=== PATIENT | female | born 1935 | race Caucasian/White ===

== ENCOUNTER 2021-02-19 16:12 | Emergency (ER) | payer MEDICARE, BC, SELFPAY ==
[2021-02-19] VITALS (13 sets, daily range): BP systolic 100–140; BP diastolic 42–74; PULSE 58–75; RESP 16–20; TEMP 38.6; O2SAT 93–98; BMI 36.7
--- NOTE | 2021-02-19 16:34 | XRR_ITS ---
PROCEDURE INFORMATION: Exam: XR Chest Exam date and time: 02/19/2021 4:34 PM Age: 85 years old Clinical indication: Shortness of breath; Prior surgery; Surgery type: Pacemaker; Additional info: Covid TECHNIQUE: Imaging protocol: XR of the chest. Views: 1 view. COMPARISON: No relevant prior studies available. FINDINGS: Tubes, catheters and devices: Three lead pacemaker device. Lungs: There are pulmonary parenchymal calcifications consistent with remote granulomatous organism exposure. Pleural spaces: Unremarkable. No pleural effusion. No pneumothorax. Heart/Mediastinum: There is a benign left pericardial fat pad. Bones/joints: Unremarkable. XR/XR chest 1V portable [id number] IMPRESSION: No evidence for acute cardiopulmonary disease.
--- NOTE | 2021-02-19 16:36 | W.ED.COVID ---
HPI - COVID General: Chief Complaint: COVID symptoms Stated Complaint: COVID +/ WEAKNESS/ CAN'T EAT OR DRINK Time Seen by Provider: 02/19/21 16:14 Source: patient Mode of arrival: EMS Limitations: no limitations Triage information: Has fever, cough or shortness of breath. No known COVID + exposure last 14 days History of Present Illness: HPI Narrative: 85 yo f who lives alone with relevant pmh of CHF with pacemaker, COPD on home o2 2LPM who p/w chief complaint of COVID19 related symptoms. She started having symptoms last Saturday, 5 days ago. She tested positive on Saturday02/17/21. Patient is febrile on arrival. She has home o2 that she uses as needed. Patient has been using it more often. Patient very weak; she has a hard time getting up to go to the bathroom. SHe has not eaten since Saturday. Patient not on any medicines for COVID. COVID 19 common symptoms: positive fever(s), chills, non-productive cough, dyspnea, fatigue, body aches and headache(s); negative productive cough, throat pain, nausea, vomiting or diarrhea COVID 19 other sytmptoms: negative chest pain COVID Results: No Data to Display Review of Systems General: Reports: 10 or more systems reviewed and unremarkable except in HPI and below Const: Reports: fever(s), chills, body aches, change in appetite, fatigue and malaise Eyes: Denies: change in vision or blurry vision ENMT: Denies: throat pain or mouth pain Card: Reports: lightheadedness and dyspnea on exertion; Denies: chest pain, palpitations, edema or swelling of feet/ankles Resp: Reports: dyspnea, non-productive cough and wheezing; Denies: productive cough or hemoptysis GI: Denies: abdominal pain, nausea, vomiting, hematemesis or diarrhea : Reports: oliguria Musc: Reports: neck pain, back pain, extremity pain and joint pain; Denies: extremity swelling, joint swelling or joint redness Skin/Breast: Denies: rash or erythema Neuro: Reports: headache(s) and weakness in extremities (diffuse) Psych: Denies: auditory hallucinations or tactile hallucinations Physical Exam Const: COMMON NORMALS: no limitations, alert and well nourished EXAM LIMITATIONS: no altered mental status GENERAL APPEARANCE: cooperative, well developed and ill appearing; not in distress ORIENTATION/CONSCIOUSNESS: Yes awake; not confused HENMT: COMMON NORMALS: normocephalic, atraumatic, external ears normal and Normal external nose present HEAD & SCALP: normal to inspection, normocephalic and atraumatic FACE & SINUS: face symmetric NOSE: Normal external nose present EXTERNAL EAR: Yes external ears normal MOUTH: lip normal; no muffled voice Eye: COMMON NORMALS: EOMs intact bilaterally and conjunctivae normal GENERAL EYE: appearance normal, both eyes and all related structures EYELID: eyelids normal CONJUNCTIVA: Yes conjunctivae normal SCLERA: sclerae normal CORNEA: Yes corneas normal Neck/C-Spine: COMMON NORMALS: no JVD GENERAL: Yes normal visual inspection and Yes trachea midline Resp: COMMON NORMALS: normal respiratory effort, No use of accessory muscles and clear to auscultation bilaterally EFFORT & INSPECTION: Yes able to speak in complete sentences and Yes symmetric chest movement AUSCULTATION: clear to auscultation bilaterally Cardio: COMMON NORMALS: no JVD, regular rate and regular rhythm RATE: regular rate RHYTHM: regular rhythm PERIPHERAL PULSES: radial pulses present GI: COMMON NORMALS: Soft to palpation INSPECTION: Yes normal to inspection PALPATION: Yes Soft to palpation, No Tenderness to palpation present (GI) and No Guarding due to palpation present (GI) Back/Pelvis: COMMON NORMALS: thoraco-lumbar ROM normal Extremity: COMMON NORMALS: normal to inspection GENERAL: Yes normal exam except as noted Neuro: COMMON NORMALS: moves all extremities, no focal motor deficits and no sensory deficits noted SENSORIUM/ORIENTATION: Yes alert SPEECH: speech normal MOTOR EXAM: Other motor observations present (generalized weakness but able to sit up unassisted) Psych: COMMON NORMALS: mental status grossly normal, Normal thought process present, cooperative, normal affect and speech normal ATTITUDE: Yes calm ACTIVITY/MOTOR BEHAVIOR: Yes appropriate eye contact SPEECH: Yes normal speech THOUGHT PROCESS: Normal thought process present Skin: COMMON NORMALS: no rashes or lesions noted, turgor normal and no jaundice GENERAL SKIN EXAM: no rashes or lesions noted and turgor normal Course Vital Signs: Vital signs: Vital Signs Temperature 101.5 F H 02/19/21 16:16 Pulse Rate 64 02/19/21 17:30 Respiratory Rate 18 02/19/21 17:23 Blood Pressure 137/74 02/19/21 16:16 Pulse Oximetry 97 02/19/21 17:23 MDM - COVID MDM Narrative: Medical decision making narrative: 85 yo f with confirmed COVID infection with anorexia, generalized weakness, dehydration, severe body aches. She has chronic respiratory failure and uses 3L of oxygen PRN at home. She has been using it more often but not in respiratory distress. Patient has fever here. WIll give 1L of NS, check cxr, cbc, cmp. Decadron 6mg IV given. Differential Diagnosis: Differential diagnosis: Likely COVID 19, pneumonia and CHF exacerbation Lab Data: Labs: Lab Results 02/19/21 Range/Units 17:10 WBC 5.4 (4.0-10.0) 10^3/ uL RBC 4.28 (4.1-5.3) 10^6/u L Hgb 13.1 (11.5-15.3) g/dL Hct 41.0 (37.0-47.0) % MCV 95.8 (81-99) fL MCH 30.6 (28.0-34.0) pg MCHC 32.0 (30.0-36.0) g/dL RDW 13.2 (12.1-15.1) % Plt Count 146 (130-400) 10^3/c mm MPV 11.0 H (7.4-10.4) fL Neut % (Auto) 65.6 % Lymph % (Auto) 19.4 % [place] % (Auto) 14.0 % Eos % (Auto) 0.4 % Baso % (Auto) 0.2 % Neut # (Auto) 3.56 (1.8-7.7) 10^3/u L Lymph # (Auto) 1.1 (0.8-4.8) 10^3/u L Shelby # (Auto) 0.8 (0.2-0.9) 10^3/u L Eos # (Auto) 0.0 (0.0-0.8) 10^3/u L Baso # (Auto) 0.0 (0.0-0.1) 10^3/u L Nucleated RBC % (a uto) 0 % Nucleated RBCs # 0.0 /100WBC COVID Results: No Data to Display Discharge Plan Discharge Prescriptions: No Action multivitamin Tablet 1 tab PO DAILY RF: 0 losartan 50 mg tablet 50 mg PO DAILY RF: 0 metformin 500 mg tablet 500 mg PO DAILY RF: 0 carvedilol 12.5 mg tablet 12.5 mg PO DAILY RF: 0 Dona Allergy 60 mg Tablet 60 mg PO DAILY RF: 0 Aspir-81 81 mg Tablet,Delayed Release (Dr/Ec) 81 mg PO DAILY RF: 0 potassium chloride 20 mEq tablet,ER particles/crystals 20 meq PO DAILY RF: 0 furosemide 80 mg tablet 40 mg PO DAILY RF: 0 triamcinolone acetonide 0.1 % Ointment 1 applic TOPICAL BID RF: 0 nitroglycerin 0.4 mg Tablet, Sublingual 0.4 mg SUBLINGUAL Q5M PRN (Reason: Chest Pain) RF: 0 montelukast 10 mg tablet 10 mg PO BEDTIME RF: 0 lovastatin 20 mg tablet 20 mg PO DAILY RF: 0 probenecid 500 mg tablet 500 mg PO TID RF: 0 duloxetine 30 mg capsule,delayed release(DR/EC) 30 mg PO DAILY RF: 0 Calcium with Vitamin D 600 mg(1,500mg) -400 unit Tablet 1 tab PO DAILY RF: 0 Flonase Sensimist 27.5 mcg/actuation spray,suspension 1 spray INTRANASAL DAILY PRN (Reason: Allergy Symptoms) RF: 0 Coding Level of Care Code ED Senior Financial Reporting Analyst for Chg Fwd Exam Comprehensive
[2021-02-19] MEDS: dexamethasone 4 mg/mL INJ 6 MG IVP (16:57)
[2021-02-19] MEDS: ondansetron 2 mg/ML SDV 2 mL 4 MG IV (16:58)
[2021-02-19] MEDS: acetaminophen 325 mg Tablet 650 MG PO (16:58)
[2021-02-19] MEDS: albuterol 8 gm MDI 2 PUFF INHALATION (17:23)
[2021-02-19 17:30] LABS: Basophils % 0.2 %; Eosinophils % 0.4 %; Hemoglobin 13.1 g/dL (11.5-15.3); Lymphocytes # 1.1 10^3/uL (0.8-4.8); Lymphocytes % 19.4 %; Mean Corpuscular Hemoglobin 30.6 pg (28.0-34.0); Mean Corpuscular Volume 95.8 fL (81-99); Monocytes # 0.8 10^3/uL (0.2-0.9); Neutrophils # 3.56 10^3/uL (1.8-7.7); Neutrophils % 65.6 %; Nucleated Red Blood Cells % 0 %; Platelet Count 146 10^3/cmm (130-400); Red Blood Count 4.28 10^6/uL (4.1-5.3); Red Cell Distribution Width 13.2 % (12.1-15.1); White Blood Count 5.4 10^3/uL (4.0-10.0)
[2021-02-19] MEDS: dextrose 5%-sod chloride 0.45% 1,000 ML 150 ML IV (17:40)
[2021-02-19 17:57] LABS: Alanine Aminotransferase 16 U/L (0-33); Albumin Level 3.5 g/dL (3.5-5.2); Alkaline Phosphatase 61 IU/L (35-105); Aspartate Amino Transferase 18 U/L (0-32); Blood Urea Nitrogen 13 mg/dL (8-23); C Reactive Protein 21.9 mg/L (0.0-4.9); Calcium 8.1 mg/dL (8.5-10.5); Carbon Dioxide 22 mmol/L (22-29); Chloride 99 mmol/L (98-107); Globulin 2.6 g/dL (1.3-4.6); Glucose 98 mg/dL (65-115); Osmolality Calculated 274 mOsm/kg (285-295); Sodium 132 mmol/L (136-145); Total Bilirubin 0.3 mg/dL (0.15-1.2); Total Protein 6.1 g/dL (6.6-8.7)
--- NOTE | 2021-02-19 18:22 | W.ED.COVID ---
HPI - COVID General: Chief Complaint: COVID symptoms Stated Complaint: COVID +/ WEAKNESS/ CAN'T EAT OR DRINK Time Seen by Provider: 02/19/21 16:14 Source: patient Mode of arrival: EMS Limitations: no limitations Triage information: Has fever, cough or shortness of breath. No known COVID + exposure last 14 days COVID Results: SARS-CoV-2 Antigen (Rapid) Positive (Negative) H 02/19/21 17:10 02/19/21 Course Vital Signs: Vital signs: Vital Signs Temperature 101.5 F H 02/19/21 16:16 Pulse Rate 61 02/19/21 22:15 Respiratory Rate 18 02/19/21 22:15 Blood Pressure 114/74 02/19/21 22:15 Pulse Oximetry 98 02/19/21 22:15 MDM - COVID MDM Narrative: Medical decision making narrative: 85-year-old female presents to the emergency room initially seen by Dr. Sherman she is Covid positive she wishes to proceed with monoclonal antibody infusion. She meets all the criteria notation completed on the chart patient signed consent will transfuse and discharge however monitor sats at home if worsens return Lab Data: Attestation: I reviewed the patient's lab results. Labs: Lab Results 02/19/21 02/19/21 02/19/21 Range/Units 17:10 17:10 17:10 WBC 5.4 (4.0-10.0) 10^3/ uL RBC 4.28 (4.1-5.3) 10^6/u L Hgb 13.1 (11.5-15.3) g/dL Hct 41.0 (37.0-47.0) % MCV 95.8 (81-99) fL MCH 30.6 (28.0-34.0) pg MCHC 32.0 (30.0-36.0) g/dL RDW 13.2 (12.1-15.1) % Plt Count 146 (130-400) 10^3/c mm MPV 11.0 H (7.4-10.4) fL Neut % (Auto) 65.6 % Lymph % (Auto) 19.4 % [place] % (Auto) 14.0 % Eos % (Auto) 0.4 % Baso % (Auto) 0.2 % Neut # (Auto) 3.56 (1.8-7.7) 10^3/u L Lymph # (Auto) 1.1 (0.8-4.8) 10^3/u L [place] # (Auto) 0.8 (0.2-0.9) 10^3/u L Eos # (Auto) 0.0 (0.0-0.8) 10^3/u L Baso # (Auto) 0.0 (0.0-0.1) 10^3/u L Nucleated RBC % (a uto) 0 % Nucleated RBCs # 0.0 /100WBC Sodium 132 L (136-145) mmol/L Potassium 4.0 (3.5-5.1) mmol/L Chloride 99 (98-107) mmol/L Carbon Dioxide 22 (22-29) mmol/L Anion Gap 15.0 (5-19) BUN 13 (8-23) mg/dL Creatinine 0.9 (0.5-0.9) mg/dL GFR Calculation Not Reportable Glucose 98 (65-115) mg/dL Calculated Osmolal ity 274 L (285-295) mOsm/k g Calcium 8.1 L (8.5-10.5) mg/dL Magnesium 2.0 (1.7-2.3) mg/dL Total Bilirubin 0.3 (0.15-1.2) mg/dL AST 18 (0-32) U/L ALT 16 (0-33) U/L Alkaline Phosphata se 61 (35-105) IU/L C-Reactive Protein 21.9 H (0.0-4.9) mg/L Total Protein 6.1 L (6.6-8.7) g/dL Albumin 3.5 (3.5-5.2) g/dL Globulin 2.6 (1.3-4.6) g/dL SARS-CoV-2 Ag (Rap id) Positive H (Negative) COVID Results: SARS-CoV-2 Antigen (Rapid) Positive (Negative) H 02/19/21 17:10 02/19/21 Monoclonal Antibody Treatments Inclusion/Exclusion Criteria weight >/= 40 kg and + direct Sars-Cov-2 test less than 7-10 days ago age >/= 65 Patient education patient/family/caregiver received/reviewed fact sheet, Emergency Use Authorization/unapproved drug status discussed with patient/family/caregiver, alternatives to this treatment discussed with patient/family/caregiver, risks and benefits of medication reviewed with patient/family/caregiver, patient/family/caregiver given opportunity for questions, which were answered and patient consents to receiving Monoclonal Antibody Treatment Plan for treatment Meets criteria for Monoclonal Antibody infusion Ordering Monoclonal Antibody infusion for today Discharge Plan Discharge Patient Disposition: Home Clinical Impression: COVID-19 Condition: Stable Prescriptions: No Action multivitamin Tablet 1 tab PO DAILY RF: 0 losartan 50 mg tablet 50 mg PO DAILY RF: 0 metformin 500 mg tablet 500 mg PO DAILY RF: 0 carvedilol 12.5 mg tablet 12.5 mg PO DAILY RF: 0 Dona Allergy 60 mg Tablet 60 mg PO DAILY RF: 0 Aspir-81 81 mg Tablet,Delayed Release (Dr/Ec) 81 mg PO DAILY RF: 0 potassium chloride 20 mEq tablet,ER particles/crystals 20 meq PO DAILY RF: 0 furosemide 80 mg tablet 40 mg PO DAILY RF: 0 triamcinolone acetonide 0.1 % Ointment 1 applic TOPICAL BID RF: 0 nitroglycerin 0.4 mg Tablet, Sublingual 0.4 mg SUBLINGUAL Q5M PRN (Reason: Chest Pain) RF: 0 montelukast 10 mg tablet 10 mg PO BEDTIME RF: 0 lovastatin 20 mg tablet 20 mg PO DAILY RF: 0 probenecid 500 mg tablet 500 mg PO TID RF: 0 duloxetine 30 mg capsule,delayed release(DR/EC) 30 mg PO DAILY RF: 0 Calcium with Vitamin D 600 mg(1,500mg) -400 unit Tablet 1 tab PO DAILY RF: 0 Flonase Sensimist 27.5 mcg/actuation spray,suspension 1 spray INTRANASAL DAILY PRN (Reason: Allergy Symptoms) RF: 0 Discharge Orders: Discharge ED (Routine); Ordered 02/19/21 Ordered By: Deng Edmondson Discharge Diet: As Directed Discharge Activity: Increase activity as tolerated Patient Instructions: Opioid Safety Activity Restrictions/Additional Instructions: Monitor oxygen saturations at home if are below 90% at rest return to the emergency room Sign Out Sign Out Data: Patient Sign Out occurred on 02/19/21 at 18:19. Patient's care was discussed, and care was transferred from to Deng Edmondson DO. Coding Level of Care Code ED T[employer]el Machine Operator for José Person
[2021-02-19 19:35] LABS: SARS Covid-2 Antigen Positive (Negative)
== END 2021-02-19 22:16 | disposition home or self-care (01) ==
PROVIDERS: Emergency Medicine; Emergency Provider Family Medicine
DX: U07.1 COVID-19 (principal)
CPT/HCPCS: 71045; 80053; 83735; 85025; 86140; 87426; 94640; 96365; 96375; 99284; J1100; J2405; J3535; J7799

== ENCOUNTER 2024-05-12 13:11 | Outpatient (CLI) | payer MEDICARE, SELFPAY ==
--- NOTE | 2024-05-12 13:25 | USCV_ITS ---
Betty Teixeira Age: 88 Gender: F : 1935 Exam Date: 05/12/2024 13:14 Ordering Phys: Pro Schmitt DO Technologist: Exam Location: [facility] [place] Indication: pad RIGHT LEFT Brachial 129.00 mmHg Brachial 128.00 mmHg Pressure (mmHg) Waveform Pressure (mmHg) Waveform 90.00 FOURTH MATE 83.00 162.00 DPA 167.00 1.20 Ankle/Brachial Index 1.20 107.00 Pre-Exercise Toe Pressure 1.20 0.83 Pre-Exercise Toe/Brachial Index 0.69 FINDINGS Resting RONI 1.2 bilaterally Resting TBI 0.83 on the right side and 0.69 on the left CONCLUSIONS Normal resting RONI and TBI on the right side, suggesting no significant arterial obstruction. Normal resting RONI with a slightly diminished resting TBI on the left side, may suggest a mild peripheral artery disease Dr Antoinette Fuller MD [facility] (Electronically Signed) Final Date: 12 May 2024 22:39 S
== END 2024-05-12 13:12 | disposition home or self-care (01) ==
PROVIDERS: PCP Electrodiagnostic Medicine; Visit Provider Electrodiagnostic Medicine
DX: I73.9 Peripheral vascular disease, unspecified (principal)
CPT/HCPCS: 93922

== ENCOUNTER 2025-03-11 13:44 | Outpatient (CLI) | payer MEDICARE, SELFPAY ==
--- NOTE | 2025-03-11 13:57 | CTR_ITS ---
PROCEDURE INFORMATION: Exam: CTA Abdominal Aorta and Bilateral Lower Extremities (Run-off) With Contrast Exam date and time: 03/11/2025 2:38 PM Age: 89 years old Clinical indication: Discoloration or erythema; Prior surgery; Surgery date: 6+ months; Surgery type: Bilateral feet nerves removed, RT ankle; Acute left foot pain with swelling and discolored; Additional info: Acute pain of left foot TECHNIQUE: Imaging protocol: Computed tomographic angiography of the of the abdominal aorta, pelvis and bilateral lower extremities with contrast. 3D rendering (Not supervised by radiologist): MIP and/or 3D reconstructed images were created by the technologist. Radiation optimization: All CT scans at this facility use at least one of these dose optimization techniques: automated exposure control; mA and/or kV adjustment per patient size (includes targeted exams where dose is matched to clinical indication); or iterative reconstruction. Contrast material: OMNI 350; Contrast volume: 125 ml; Contrast route: INTRAVENOUS (IV); COMPARISON: US CV ankle brachial index 08506 05/12/2024 1:14 PM RADIATION DOSE METRICS: Total DLP (mGy-cm): 1708.12 FINDINGS: Aorta: No aortic aneurysm. No aortic dissection. Celiac trunk and mesenteric arteries: No occlusion or significant stenosis. Renal arteries: No occlusion or significant stenosis. Right iliac arteries: No occlusion or significant stenosis. Right femoral/popliteal arteries: No occlusion or significant stenosis. Right infrapopliteal arteries: No occlusion or significant stenosis. Left iliac arteries: No occlusion or significant stenosis. Left femoral/popliteal arteries: No occlusion or significant stenosis. Left infrapopliteal arteries: No occlusion or significant stenosis. Liver: No mass. Gallbladder and biliary ducts: Unremarkable. No calcified stones. No ductal dilation. Pancreas: Unremarkable. No mass. No ductal dilation. Spleen: Multiple granulomas are present.. No splenomegaly. Adrenal glands: Normal. No mass. Kidneys and ureters: Normal. Simple cyst is present in the right kidney. Multiple low-attenuation lesions are present in both kidneys which are too small to characterize. No hydronephrosis. Stomach and bowel: Unremarkable. No obstruction. No mucosal thickening. Appendix: No evidence of appendicitis. Urinary bladder: Unremarkable. No mass. Reproductive: Unremarkable as visualized. The left gonadal vein measures 1 cm in diameter. The right measures 0.9 cm. This is associated with pelvic congestion syndrome. Intraperitoneal space: Unremarkable. No free air. No significant fluid collection. Lymph nodes: No lymphadenopathy. Bones/joints: Postop changes of open reduction internal fixation of the distal right fibula and tibia are present. Multilevel degenerative changes of the spine are present. There is a grade 1 anterior spondylolisthesis of L4 on L5. There is severe spinal canal stenosis at this level. Degenerative changes at L1-L2 are associated with a generalized disc bulge. Spinal canal stenosis is also present at this level. Soft tissues: Unremarkable. CT/CT angio abd aorta runof 10540 IMPRESSION: 1. Normal-appearing vessels without evidence of significant stenosis or occlusion. 2. 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 3. 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 4. Additional findings as described above.
[2025-03-11 14:31] LABS: Blood Urea Nitrogen 29 mg/dL (8-23)
[2025-03-11] MEDS: iohexol 350 mg/mL 500 mL Btl (per mL) IV (14:53)
== END 2025-03-11 13:45 | disposition home or self-care (01) ==
LOC: RAD 13:45
PROVIDERS: Visit Provider Electrodiagnostic Medicine
DX: M79.672 Pain in left foot (principal); L92.9 Granulomatous disorder of the skin and subcutaneous tissue, unspecified; N28.1 Cyst of kidney, acquired; N28.9 Disorder of kidney and ureter, unspecified; N94.89 Other specified conditions associated with female genital organs and menstrual cycle; M43.16 Spondylolisthesis, lumbar region; M48.061 Spinal stenosis, lumbar region without neurogenic claudication; M51.369 Other intervertebral disc degeneration, lumbar region without mention of lumbar back pain or lower extremity pain
CPT/HCPCS: 75635; 82565; 84520